=== PATIENT | female | born 1995 | race Caucasian/White ===

== ENCOUNTER 2020-10-26 18:59 | Day surgery (SDC) | payer OTHER ==
[2020-10-26 19:27] VITALS: BMI 33.8
[2020-10-26 20:04] LABS: Fetal Membranes Rupture No Membranes Rupture (No Rupture)
[2020-10-26] MEDS ORDERED: hydrALAZINE 20 MG/ML VIAL SLOW IVP PRN (20:16)
== END 2020-10-26 21:35 | disposition home or self-care (01) ==
LOC: CSHLD/OP 18:59
PROVIDERS: ATTEND Family Medicine
DX: O99.891 Other specified diseases and conditions complicating pregnancy (principal); N89.8 Other specified noninflammatory disorders of vagina; Z3A.32 32 weeks gestation of pregnancy
CPT/HCPCS: 84112; 99284